=== PATIENT | female | born 1935 | race Two or more races ===

== ENCOUNTER 2017-08-06 14:14 | Emergency (ER) | payer MEDICARE, OTHER ==
[2017-08-06 15:55] LABS: ANION GAP 10 (8-16); BLOOD UREA NITROGEN 23 mg/dl (7-20); CALCIUM 7.2 mg/dl (8.4-10.2); CARBON DIOXIDE 26 mmol/L (21-31); CHLORIDE 111 mmol/L (97-110); CREATININE 1.16 mg/dl (0.44-1.00); GLUCOSE 101 mg/dl (70-220); POTASSIUM 4.3 mmol/L (3.5-5.1); SODIUM 143 mmol/L (135-144)
[2017-08-06 16:05] LABS: INR 1.05; PROTIME 13.8 Sec (11.9-14.9); PT RATIO 1.1
[2017-08-06] MEDS: SOD CHLORIDE 0.9% 100 ML (17:07)
[2017-08-06] MEDS: IODIXANOL LOCM 100 ML BTL (17:07)
[2017-08-06] MEDS: FUROSEMIDE 40 MG INJ IV (19:25)
== END 2017-08-06 20:02 | disposition home or self-care (01) ==
LOC: E/R 14:14
DX: I50.9 Heart failure, unspecified (principal); S52.591A Other fractures of lower end of right radius, initial encounter for closed fracture; S39.81XA Other specified injuries of abdomen, initial encounter; J90 Pleural effusion, not elsewhere classified; I10 Essential (primary) hypertension; R40.2142 Coma scale, eyes open, spontaneous, at arrival to emergency department; R40.2252 Coma scale, best verbal response, oriented, at arrival to emergency department; R40.2362 Coma scale, best motor response, obeys commands, at arrival to emergency department; R51 Headache; W18.30XA Fall on same level, unspecified, initial encounter; Y92.9 Unspecified place or not applicable; Z79.82 Long term (current) use of aspirin
CPT/HCPCS: 29125; 36415; 70450; 70480; 71045; 73110-RT; 73130-RT; 74177; 80048; 85610; 85730; 96374; 99285-25

== ENCOUNTER 2017-10-13 08:31 | Inpatient (IN) | payer MEDICARE, OTHER ==
[2017-10-13 09:38] LABS: ABNORMAL IP MESSAGE 1; HEMATOCRIT 37.1 % (37.0-47.0); HEMOGLOBIN 11.8 g/dl (12.0-16.0); MEAN CORPUSCULAR HEMOGLOBIN 30.4 pg (29.0-33.0); MEAN CORPUSCULAR HGB CONC 31.8 g/dl (32.0-37.0); MEAN CORPUSCULAR VOLUME 95.6 fl (82.0-101.0); MEAN PLATELET VOLUME 9.4 fl (7.4-10.4); PLATELET COUNT 259 10^3/UL (140-415); RED BLOOD COUNT 3.88 10^6/ul (4.20-5.40); RED CELL DISTRIBUTION WIDTH 12.3 % (11.5-14.5)
[2017-10-13 09:38] LABS: WHITE BLOOD COUNT 16.2 10^3/ul (4.8-10.8)
[2017-10-13 09:39] LABS: ADD MAN DIFF? YES; POSITIVE DIFF @See below
[2017-10-13] MEDS: SOD CHLORIDE 0.9% 1,000 ML IV (09:39)
[2017-10-13 09:58] LABS: INR 1.09; PROTIME 14.2 Sec (11.9-14.9); PT RATIO 1.1
[2017-10-13 09:59] LABS: PARTIAL THROMBOPLASTIN TIME 28.1 Sec (25.0-35.0)
[2017-10-13 10:03] LABS: OCCULT BLOOD STOOL NEGATIVE (NEGATIVE)
[2017-10-13 10:04] LABS: ALANINE AMINOTRANSFERASE 14 IU/L (13-69); ALBUMIN 2.2 g/dl (3.3-4.9); ALBUMIN/GLOBULIN RATIO 0.64; ALKALINE PHOSPHATASE 96 IU/L (42-121); AMYLASE 57 U/L (11-123); ANION GAP 4 (8-16); ASPARTATE AMINO TRANSFERASE 13 IU/L (15-46); BILIRUBIN,INDIRECT 0.5 mg/dl (0-1.1); BILIRUBIN,TOTAL 0.5 mg/dl (0.2-1.3); BLOOD UREA NITROGEN 15 mg/dl (7-20); CALCIUM 7.6 mg/dl (8.4-10.2); CARBON DIOXIDE 25 mmol/L (21-31); CHLORIDE 115 mmol/L (97-110); CREATININE 0.95 mg/dl (0.44-1.00); GLUCOSE 105 mg/dl (70-220); LIPASE 59 U/L (23-300); SODIUM 140 mmol/L (135-144); TOTAL PROTEIN 5.6 g/dl (6.1-8.1)
[2017-10-13 10:21] LABS: EOSINOPHILS % (M) 57 % (0-7); GIANT THROMBO% (M) 1 % (0-0); LYMPHOCYTES #M 1.2 10^3/ul (0.8-2.9); LYMPHOCYTES % (M) 8 % (15-51); MONOCYTE #M 0.3 10^3/ul (0.3-0.9); MONOCYTES % (M) 2 % (0-11); PLATELET ESTIMATE NORMAL; REACTIVE LYMPHOCYTES #M 0.1 10^3/ul (0.0-0.0); REACTIVE LYMPHOCYTES% (M) 1 % (0-0); SEGMENTED NEUTROPHILS (M) % 32 % (39-77); SMUDGE%M 2 % (0-0)
[2017-10-13] MEDS: IOHEXOL 300MG/ML 150 ML BTL (10:54)
[2017-10-13] MEDS: SOD CHLORIDE 0.9% 100 ML (10:54)
[2017-10-13] MEDS: CEFTRIAXONE 1 GM/50 ML (PMX) 50 ML IVPB (12:13)
[2017-10-13 13:05] LABS: ADD UMIC NO; UR ASCORBIC ACID NEGATIVE (NEGATIVE); UR BILIRUBIN (Dip) NEGATIVE (NEGATIVE); UR BLOOD (Dip) NEGATIVE (NEGATIVE); UR CLARITY CLEAR (CLEAR); UR COLOR YELLOW (YELLOW); UR GLUCOSE (Dip) NEGATIVE (NEGATIVE); UR KETONES (Dip) NEGATIVE (NEGATIVE); UR LEUKOCYTE ESTERASE (Dip) NEGATIVE Leu/ul (NEGATIVE); UR NITRITE (Dip) NEGATIVE (NEGATIVE); UR SPECIFIC GRAVITY (Dip) 1.027 (1.003-1.030); UR TOTAL PROTEIN (Dip) NEGATIVE (NEGATIVE); UR UROBILINOGEN (Dip) NEGATIVE (NEGATIVE)
[2017-10-13] MEDS ORDERED: ONDANSETRON 4 MG INJ IV (14:30)
[2017-10-13] MEDS ORDERED: MAGNESIUM HYDROXIDE 30ML CUP PO (14:30)
[2017-10-13] MEDS ORDERED: traMADol 50 MG TAB PO (14:30)
[2017-10-13] MEDS ORDERED: NACL 0.9% 3 ML SYG IV (14:30)
[2017-10-13] MEDS ORDERED: ACETAMINOPHEN 325 MG TAB PO (14:30)
[2017-10-13] MEDS ORDERED: DOCUSATE SODIUM 100 MG CAP PO (14:30)
[2017-10-13] MEDS: LEVOFLOXACIN 500MG/D5W (PMX) 100 ML IVPB (15:05)
[2017-10-13] MEDS ORDERED: RANITIDINE 150 MG TAB PO (21:00)
[2017-10-13] MEDS ORDERED: SALMETEROL/FLUTICASONE 250/50 INHA INH (21:00)
[2017-10-13] MEDS: FERROUS SULFATE (EC) 325 MG TAB PO (22:16)
[2017-10-13] MEDS: ROSUVASTATIN CALCIUM 40 MG TABLET PO (22:16)
[2017-10-13] MEDS: FLUTICASONE/VILANTEROL 100-25 INH (22:19)
[2017-10-14] MEDS: PANTOPRAZOLE (EC) 40 MG TAB PO (05:29)
[2017-10-14 06:47] LABS: ABNORMAL IP MESSAGE 1; HEMATOCRIT 37.1 % (37.0-47.0); HEMOGLOBIN 11.7 g/dl (12.0-16.0); MEAN CORPUSCULAR HEMOGLOBIN 30.4 pg (29.0-33.0); MEAN CORPUSCULAR HGB CONC 31.5 g/dl (32.0-37.0); MEAN CORPUSCULAR VOLUME 96.4 fl (82.0-101.0); MEAN PLATELET VOLUME 9.8 fl (7.4-10.4); PLATELET COUNT 264 10^3/UL (140-415); RED BLOOD COUNT 3.85 10^6/ul (4.20-5.40); RED CELL DISTRIBUTION WIDTH 12.6 % (11.5-14.5)
[2017-10-14 06:47] LABS: WHITE BLOOD COUNT 16.7 10^3/ul (4.8-10.8)
[2017-10-14 06:54] LABS: ADD MAN DIFF? YES; POSITIVE DIFF @See below
[2017-10-14 07:14] LABS: ANION GAP 4 (8-16); BLOOD UREA NITROGEN 14 mg/dl (7-20); CALCIUM 7.8 mg/dl (8.4-10.2); CARBON DIOXIDE 27 mmol/L (21-31); CHLORIDE 114 mmol/L (97-110); CREATININE 0.99 mg/dl (0.44-1.00); GLUCOSE 80 mg/dl (70-220); MAGNESIUM 1.7 mg/dl (1.7-2.5); POTASSIUM 4.4 mmol/L (3.5-5.1); SODIUM 141 mmol/L (135-144)
[2017-10-14] MEDS: CHOLECALCIFEROL 2,000 UNIT CAP PO ×2 (08:47→09:37)
[2017-10-14] MEDS: AMLODIPINE 5 MG TAB PO (08:47)
[2017-10-14] MEDS: METOPROLOL (XL) 50 MG TAB PO (08:47)
[2017-10-14] MEDS: FUROSEMIDE 20 MG TAB PO (08:47)
[2017-10-14] MEDS: ASPIRIN (EC) 81 MG TAB PO (08:47)
[2017-10-14] MEDS: FERROUS SULFATE (EC) 325 MG TAB PO ×2 (08:47→21:08)
[2017-10-14] MEDS: BUSPIRONE 10 MG TAB PO (08:48)
[2017-10-14] MEDS: FLUTICASONE/VILANTEROL 100-25 INH (08:48)
[2017-10-14] MEDS: FENOFIBRATE 145 MG TAB PO (09:36)
[2017-10-14 10:07] LABS: BAND NEUTROPHILS #M 0.3 10^3/ul (0.0-0.6); BAND NEUTROPHILS % (M) 2 % (0-4); BURR CELLS 1+ (0-0); EOSINOPHILS % (M) 66 % (0-7); LYMPHOCYTES #M 0.5 10^3/ul (0.8-2.9); LYMPHOCYTES % (M) 3 % (15-51); MONOCYTE #M 0.3 10^3/ul (0.3-0.9); MONOCYTES % (M) 2 % (0-11); PLATELET ESTIMATE NORMAL; POIKILOCYTOSIS 1+ (0-0); POLYCHROMASIA 1+ (0-0); SEG NEUT #M 4.6 10^3/ul (1.6-7.5); SEGMENTED NEUTROPHILS (M) % 27 % (39-77); SMUDGE%M 13 % (0-0)
[2017-10-14] MEDS: LEVOFLOXACIN 500MG/D5W (PMX) 100 ML IVPB (13:32)
[2017-10-14] MEDS: ROSUVASTATIN CALCIUM 40 MG TABLET PO (21:08)
[2017-10-15] MEDS: PANTOPRAZOLE (EC) 40 MG TAB PO (05:54)
[2017-10-15 06:48] LABS: ABNORMAL IP MESSAGE 1; HEMATOCRIT 36.5 % (37.0-47.0); HEMOGLOBIN 11.3 g/dl (12.0-16.0); MEAN CORPUSCULAR HEMOGLOBIN 29.7 pg (29.0-33.0); MEAN CORPUSCULAR VOLUME 95.8 fl (82.0-101.0); MEAN PLATELET VOLUME 9.8 fl (7.4-10.4); PLATELET COUNT 227 10^3/UL (140-415); RED BLOOD COUNT 3.81 10^6/ul (4.20-5.40); RED CELL DISTRIBUTION WIDTH 12.6 % (11.5-14.5)
[2017-10-15 06:48] LABS: WHITE BLOOD COUNT 13.5 10^3/ul (4.8-10.8)
[2017-10-15 06:58] LABS: POSITIVE DIFF @See below
[2017-10-15 07:00] LABS: ADD MAN DIFF? YES
[2017-10-15] MEDS: BUSPIRONE 10 MG TAB PO (08:57)
[2017-10-15] MEDS: ASPIRIN (EC) 81 MG TAB PO (08:57)
[2017-10-15] MEDS: FENOFIBRATE 145 MG TAB PO (08:57)
[2017-10-15] MEDS: CHOLECALCIFEROL 2,000 UNIT CAP PO (08:57)
[2017-10-15] MEDS: FERROUS SULFATE (EC) 325 MG TAB PO ×2 (08:57→20:48)
[2017-10-15] MEDS: METOPROLOL (XL) 50 MG TAB PO (08:58)
[2017-10-15] MEDS: AMLODIPINE 5 MG TAB PO (08:58)
[2017-10-15] MEDS: FUROSEMIDE 20 MG TAB PO (08:58)
[2017-10-15 08:59] LABS: EOSINOPHILS % (M) 46 % (0-7); HYPOCHROMASIA 1+ (0-0); LYMPHOCYTES #M 2.1 10^3/ul (0.8-2.9); LYMPHOCYTES % (M) 16 % (15-51); MONOCYTE #M 0.2 10^3/ul (0.3-0.9); MONOCYTES % (M) 2 % (0-11); PLATELET ESTIMATE NORMAL; SEGMENTED NEUTROPHILS (M) % 36 % (39-77); SMUDGE%M 3 % (0-0)
[2017-10-15] MEDS: FLUTICASONE/VILANTEROL 100-25 INH (09:18)
[2017-10-15] MEDS: LEVOFLOXACIN 500MG/D5W (PMX) 100 ML IVPB (14:28)
[2017-10-15] MEDS ORDERED: BISACODYL (EC) 5 MG TAB PO (17:30)
[2017-10-15] MEDS: ROSUVASTATIN CALCIUM 40 MG TABLET PO (20:48)
[2017-10-15] MEDS: POLYETHYLENE GLYCOL 17 GM PACKET PO (20:49)
[2017-10-16] MEDS: PANTOPRAZOLE (EC) 40 MG TAB PO (05:39)
[2017-10-16 05:58] LABS: WHITE BLOOD COUNT 13.5 10^3/ul (4.8-10.8)
[2017-10-16 05:58] LABS: ABNORMAL IP MESSAGE 1; HEMOGLOBIN 11.4 g/dl (12.0-16.0); MEAN CORPUSCULAR HEMOGLOBIN 30.1 pg (29.0-33.0); MEAN CORPUSCULAR HGB CONC 31.7 g/dl (32.0-37.0); MEAN PLATELET VOLUME 9.6 fl (7.4-10.4); PLATELET COUNT 229 10^3/UL (140-415); RED BLOOD COUNT 3.79 10^6/ul (4.20-5.40); RED CELL DISTRIBUTION WIDTH 12.5 % (11.5-14.5)
[2017-10-16 06:00] LABS: POSITIVE DIFF @See below
[2017-10-16 06:01] LABS: ADD MAN DIFF? YES
[2017-10-16 06:17] LABS: IRON 26 ug/dl (35-150)
[2017-10-16 06:21] LABS: PHOSPHORUS 3.4 mg/dl (2.5-4.9)
[2017-10-16 06:21] LABS: ALANINE AMINOTRANSFERASE 14 IU/L (13-69); ALBUMIN/GLOBULIN RATIO 0.55; ALKALINE PHOSPHATASE 81 IU/L (42-121); ANION GAP 5 (8-16); ASPARTATE AMINO TRANSFERASE 13 IU/L (15-46); BILIRUBIN,INDIRECT 0.4 mg/dl (0-1.1); BILIRUBIN,TOTAL 0.4 mg/dl (0.2-1.3); BLOOD UREA NITROGEN 16 mg/dl (7-20); CALCIUM 7.5 mg/dl (8.4-10.2); CARBON DIOXIDE 26 mmol/L (21-31); CHLORIDE 114 mmol/L (97-110); CHOL/HDL RATIO 3.5 RATIO; CHOLESTEROL 127 mg/dl (100-200); CREATININE 0.95 mg/dl (0.44-1.00); GLUCOSE 89 mg/dl (70-220); HDL CHOLESTEROL 36 mg/dl (33-92); LDL CHOLESTEROL,CALCULATED 69 mg/dl; MAGNESIUM 1.7 mg/dl (1.7-2.5); POTASSIUM 3.9 mmol/L (3.5-5.1); SODIUM 141 mmol/L (135-144); TOTAL PROTEIN 5.6 g/dl (6.1-8.1); TRIGLYCERIDES 108 mg/dl (0-149)
[2017-10-16 06:46] LABS: % IRON SATURATION 17 % SAT (22-52); TOTAL IRON BINDING CAPACITY 150 ug/dl (241-421)
[2017-10-16 07:24] LABS: BAND NEUTROPHILS #M 0.1 10^3/ul (0.0-0.6); BAND NEUTROPHILS % (M) 1 % (0-4); BASOPHIL #M 0.1 10^3/ul (0.0-0.0); BASOPHILS % (M) 1 % (0-2); BURR CELLS 1+ (0-0); EOSINOPHILS % (M) 55 % (0-7); LYMPHOCYTES #M 1.3 10^3/ul (0.8-2.9); LYMPHOCYTES % (M) 10 % (15-51); PLATELET ESTIMATE NORMAL; POIKILOCYTOSIS 1+ (0-0); SEG NEUT #M 4.5 10^3/ul (1.6-7.5); SEGMENTED NEUTROPHILS (M) % 33 % (39-77); SMUDGE%M 8 % (0-0)
[2017-10-16 07:25] LABS: HEMOGLOBIN A1C 5.3 % (0-5.9)
[2017-10-16] MEDS: FERROUS SULFATE (EC) 325 MG TAB PO (08:30)
[2017-10-16] MEDS: FENOFIBRATE 145 MG TAB PO (08:30)
[2017-10-16] MEDS: AMLODIPINE 5 MG TAB PO (08:30)
[2017-10-16] MEDS: BUSPIRONE 10 MG TAB PO (08:30)
[2017-10-16] MEDS: METOPROLOL (XL) 50 MG TAB PO (08:30)
[2017-10-16] MEDS: ASPIRIN (EC) 81 MG TAB PO (08:30)
[2017-10-16] MEDS: FUROSEMIDE 20 MG TAB PO (08:30)
[2017-10-16] MEDS: FLUTICASONE/VILANTEROL 100-25 INH (08:31)
[2017-10-16] MEDS: CHOLECALCIFEROL 2,000 UNIT CAP PO (08:31)
[2017-10-16] MEDS: POLYETHYLENE GLYCOL 17 GM PACKET PO (08:31)
[2017-10-16] MEDS: ENOXAPARIN 40 MG/0.4 ML SYG SC ×2 (08:33→08:42)
[2017-10-16] MEDS: LEVOFLOXACIN 500MG/D5W (PMX) 100 ML IVPB (14:02)
== END 2017-10-16 20:00 | disposition home or self-care (01) | DRG 689 ==
LOC: E/R 08:31 → MS3 15:52 → PP2 21:10
DX: N12 Tubulo-interstitial nephritis, not specified as acute or chronic (principal); K57.31 Diverticulosis of large intestine without perforation or abscess with bleeding; D64.9 Anemia, unspecified; I10 Essential (primary) hypertension; I25.10 Atherosclerotic heart disease of native coronary artery without angina pectoris; E78.00 Pure hypercholesterolemia, unspecified; G62.9 Polyneuropathy, unspecified; Z79.82 Long term (current) use of aspirin; Z91.81 History of falling
CPT/HCPCS: 36415; 70450; 74177; 80048; 80053; 80061; 81003; 82150; 82270; 82728; 83036; 83540; 83690; 83735; 84100; 85025; 85610; 85730; 87040; 87086; 93005; 96374; 96375; 97116; 97162; 97530; 99285-25